=== PATIENT | female | born 1950 | race African-American/Black ===

== ENCOUNTER 2016-08-25 11:27 | Emergency (ER) | payer MEDICARE | END 2016-08-25 13:19 | disposition home or self-care (01) | LOC: D.ER 11:27 | DX: M10.9 Gout, unspecified (principal); K21.9 Gastro-esophageal reflux disease without esophagitis; I10 Essential (primary) hypertension; E11.9 Type 2 diabetes mellitus without complications ==

== ENCOUNTER → 2016-08-25 16:04 | Outpatient (CLI) | payer MEDICARE | END | disposition home or self-care (01) | LOC: D.MAMMO 11:15 | DX: Z12.31 Encounter for screening mammogram for malignant neoplasm of breast (principal) ==

== ENCOUNTER → 2017-04-10 16:34 | Outpatient (CLI) | payer MEDICARE | END | disposition home or self-care (01) | LOC: D.CT 14:30 | DX: R51 Headache (principal) ==

== ENCOUNTER → 2017-05-12 13:51 | Outpatient (CLI) | payer MEDICARE | END | disposition home or self-care (01) | LOC: D.US 13:51 | DX: N93.8 Other specified abnormal uterine and vaginal bleeding (principal) ==

== ENCOUNTER 2018-09-22 16:29 | Emergency (ER) | payer MEDICARE ==
[~2018-09-22] VITALS: Ht 160 cm; Wt 110.2 kg
[2018-09-22 17:09] VITALS: Ht 160 cm; Wt 110.2 kg
[2018-09-22] MEDS ORDERED: BAYER CHEWABLE81 MG PO (17:12)
[2018-09-22] MEDS ORDERED: HYDROCHLOROTHIA50 MG PO (17:12)
[2018-09-22] MEDS ORDERED: KLOR-CON M2020 MEQ PO (17:12)
[2018-09-22] MEDS ORDERED: GLUCOPHAGE500 MG PO (17:13)
[2018-09-22] MEDS ORDERED: COZAAR50 MG PO (17:13)
[2018-09-22] MEDS ORDERED: ZYLOPRIM300 MG PO (17:14)
[2018-09-22] MEDS ORDERED: PRAVACHOL40 MG PO (17:14)
[2018-09-22] MEDS ORDERED: OMEPRAZOLE20 M1 PO (17:14)
[2018-09-22] MEDS ORDERED: CARDIZEM120 MG PO (17:14)
[2018-09-22] MEDS ORDERED: MECLIZINE HCL25 MG PO (17:15)
[2018-09-22 18:21] LABS: APPEARANCE CLEAR (CLEAR); BILIRUBIN NEGATIVE (NEGATIVE); COLOR YELLOW (YELLOW); GLUCOSE NEGATIVE (NEGATIVE); KETONE NEGATIVE (NEGATIVE); NITRITE NEGATIVE (NEGATIVE); PROTEIN NEGATIVE (NEGATIVE); UROBILINOGEN NORMAL (NORMAL)
[2018-09-22 18:52] LABS: BASOPHILS 0.2 % (0-2); HEMATOCRIT 47.6 % (36.0-48.0); HEMOGLOBIN 15.2 g/dL (12-16); IMMATURE GRANULOCYTES 0.1 % (0-5); LYMPHOCYTES 19.5 % (15-50); MCH 28.6 pg (26.0-34.0); MCHC 31.9 g/dL (31.0-37.0); MCV 89.6 fL (80.0-100.0); MEAN PLATELET VOLUME 10.7 fL (7.4-10.4); MONOCYTES 4.7 % (2-11); NEUTROPHILS 73.5 % (40-80); PLATELET COUNT 275 10x3/uL (130-400); RBC 5.31 10x6/uL (4.00-5.40); RDW 15.1 % (11.5-14.5); WBC 9.3 10x3/uL (4.8-10.8)
[2018-09-22 19:18] LABS: ALBUMIN 4.1 g/dL (3.4-5.0); ALKALINE PHOSPHATASE 84 U/L (46-116); ALT (SGPT) 18 U/L (10-68); AMYLASE - SERUM 73 U/L (25-115); BILIRUBIN - TOTAL 0.42 mg/dL (0.2-1.3); CALC OSMOLALITY 280 mosm/kg (275-300); CARBON DIOXIDE 28.2 mmol/L (21.0-32.0); CHLORIDE - SERUM 102 mmol/L (98-107); CREATININE - SERUM 0.8 mg/dL (0.6-1.3); GLUCOSE 80 mg/dL (74-106); LIPASE 194 U/L (73-393); POTASSIUM - SERUM 3.4 mmol/L (3.5-5.1); PROTEIN - SERUM 8.1 g/dL (6.4-8.2); SODIUM 141 mmol/L (136-145); UREA NITROGEN 15 mg/dL (7-18); eGFR NON AFRICAN AMERICAN 75 mL/min (90-120)
[2018-09-22 19:24] LABS: CALCIUM 9.4 mg/dL (8.5-10.1)
[2018-09-22] MEDS ORDERED: ANTIVERT12.5 MG PO (19:57)
[2018-09-22 20:24] VITALS: BP 141/77
== END 2018-09-22 20:24 | disposition home or self-care (01) ==
LOC: D.ER 16:29
PROVIDERS: Family Medicine
DX: R42 Dizziness and giddiness (principal); R19.7 Diarrhea, unspecified; E87.6 Hypokalemia

== ENCOUNTER 2019-12-20 09:00 | Outpatient (CLI) | payer MEDICARE ==
[2018-09-22 17:09] VITALS: BMI 43.0
[~2019-12-20 09:00] MED LIST: ANTIVERT12.5 MG PO; BAYER CHEWABLE81 MG PO; CARDIZEM120 MG PO; COZAAR50 MG PO; GLUCOPHAGE500 MG PO; HYDROCHLOROTHIA50 MG PO; KLOR-CON M2020 MEQ PO; MECLIZINE HCL25 MG PO; OMEPRAZOLE20 M1 PO; PRAVACHOL40 MG PO; ZYLOPRIM300 MG PO
== END 2019-12-20 10:00 | disposition home or self-care (01) ==
LOC: D.MAMMO 09:00
PROVIDERS: ATTEND Family Medicine
DX: Z12.31 Encounter for screening mammogram for malignant neoplasm of breast (principal)

== ENCOUNTER 2021-01-12 15:30 | Outpatient (CLI) | payer MEDICARE ==
[2018-09-22 17:09] VITALS: BMI 43.0
== END 2021-01-12 23:59 | disposition home or self-care (01) ==
LOC: D.MAMMO 15:30
PROVIDERS: ATTEND Family Medicine
DX: Z12.31 Encounter for screening mammogram for malignant neoplasm of breast (principal)